=== PATIENT | male | born 1965 | race Caucasian/White ===

== ENCOUNTER 2018-06-08 02:20 | Emergency (ER) | payer OTHER ==
[2018-06-08] MEDS ORDERED: KETOROLAC TROMETHAMINE INJ/PF 30 MG/1 ML SDV IM ONE (03:55)
[2018-06-08] MEDS ORDERED: HYDROMORPHONE HCL INJ/PF 2 MG/ML AMPULE IM ONE (04:53)
[2018-06-08] MEDS ORDERED: DIAZEPAM INJ 10 MG/2 ML DISP.SYRIN IM ONE ×2 (05:40→06:28)
--- NOTE | 2018-06-08 05:50 | ER Document Report ---
ED General - General Chief Complaint: Back Pain Stated Complaint: BACK PAIN Time Seen by Provider: 06/08/18 03:43 Notes: Patient is a pleasant 53-year-old male with a history of chronic back pain who presents with sudden onset severe pain in the left lower back that sometimes spasms and radiates across the lower back and he sometimes has pain that shoots down the back of his left leg and around the left hip. He has a history of degenerative disc disease. He says he is not on any chronic pain medicine. He says he will occasionally take Tylenol for pain. Denies any new injuries. No new trauma. No fevers. No weakness into the leg. No loss of bowel control. No urinary tension. TRAVEL OUTSIDE OF THE [place] IN LAST 30 DAYS: No - Related Data Allergies/Adverse Reactions: No Known Allergies Allergy (Unverified 11/16/11 21:24) Past Medical History - Social History Smoking Status: Never Smoker Chew tobacco use (# tins/day): No Frequency of alcohol use: None Drug Abuse: None Family History: Reviewed & Not Pertinent Patient has suicidal ideation: No Patient has homicidal ideation: No - Past Medical History Cardiac Medical History: Reports: Hx Hypercholesterolemia Denies: Hx Atrial Fibrillation, Hx Congestive Heart Failure, Hx Coronary Artery Disease, Hx Heart Attack, Hx Hypertension, Hx Peripheral Vascular Disease, Hx Pulmonary Embolism, Hx Heart Murmur Pulmonary Medical History: Reports: Hx Pneumonia Denies: Hx Asthma, Hx Bronchitis, Hx COPD, Hx Respiratory Failure, Hx Sleep Apnea, Hx Tuberculosis Neurological Medical History: Denies: Hx Cerebrovascular Accident, Hx Seizures Endocrine Medical History: Denies: Hx Graves' Disease, Hx Hyperthyroidism, Hx Hypothyroidism Renal/ Medical History: Denies: Hx Benign Prostatic Hyperplasia, Hx End Stage Renal Disease, Hx Kidney Stones, Hx Peritoneal Dialysis Malignancy Medical History: Denies Hx Leukemia, Denies Hx Lung Cancer GI Medical History: Denies: Hx Crohn's Disease, Hx Gastroesophageal Reflux Disease, Hx Hiatal Hernia, Hx Irritable Bowel, Hx Liver Failure, Hx Pancreatitis, Hx Ulcer Musculoskeletal Medical History: Reports Hx Arthritis, Denies Hx Fibromyalgia, Denies Hx Multiple Sclerosis, Denies Hx Muscular Dystrophy Psychiatric Medical History: Reports: Hx Post Traumatic Stress Disorder Denies: Hx Bipolar Disorder, Hx Dementia, Hx Depression, Hx Schizophrenia Traumatic Medical History: Reports: Hx Fractures - HX LEFT BROKEN ELBOX Infectious Medical History: Denies: Hx HIV Past Surgical History: Denies: Hx Colostomy, Hx Pacemaker - Immunizations Hx Diphtheria, Pertussis, Tetanus Vaccination: Yes Review of Systems - Review of Systems Notes: My Normal Review Basic REVIEW OF SYSTEMS: CONSTITUTIONAL : Denies fever, chills, or sweats. Denies recent illness. RESPIRATORY: Denies cough, cold, or chest congestion. Denies shortness of breath, difficulty breathing, or wheezing. GASTROINTESTINAL: Denies abdominal pain. Denies nausea, vomiting, or diarrhea. Denies constipation. Last BM: GENITOURINARY: No urinary tension MUSCULOSKELETAL: Lower back pain SKIN: Denies rash or skin lesions. NEUROLOGICAL: Denies sensory or motor loss. ALL OTHER SYSTEMS REVIEWED AND NEGATIVE. Physical Exam - Vital signs Vitals: Temp Pulse Resp BP Pulse Ox 97.2 F 99 17 140/80 H 96 06/08/18 02:27 06/08/18 02:27 06/08/18 02:27 06/08/18 02:27 06/08/18 02:27 - Notes Notes: General Appearance: Well nourished, alert, cooperative, no acute distress, moderate obvious discomfort. Vitals: reviewed, See vital signs table. Eyes: PERRL, EOMI, Conjuctiva clear Mouth: No decreasd moisture Extremities: strength 5/5 in all extremities, good pulses in all extremities, no swelling or tenderness in the extremities, no edema. Back: Reproducible pain to palpation that is mainly just left to the lumbar sacral junction. This causes pain that radiates into the hip and down the back of the leg. No pain to palpation to the right side of the back. When I push on the left side he will sometimes have pain that shoots across to the right side. No bruising or redness or swelling to the back. Skin: warm, dry, appropriate color, no rash Neuro: speech clear, oriented x 3, normal affect, responds appropriately to questions. Good strength with plantar and dorsiflexion against resistance. Distal sensation intact. Normal patellar reflexes. Course - Re-evaluation Re-evalutation: 06/08/18 06:33 Patient's pain and spasm finally improved with the Valium. Spinning flexion hours since he received a dose of Valium but he still having some intermittent spasm but says it is now tolerable. He is a wide awake and alert and still having some pain. I will therefore give him a dose of Valium before he leaves. I encouraged him to return to ER immediately if he has loss of bowel control, urinary tension, leg weakness or numbness, or if he feels that he is worse in any way. Patient has no symptoms concerning for central cord impingement. I encouraged follow-up with his doctor Sunday for reevaluation and for possible referral to physical therapy. Patient agrees with plan will be discharged home. Dictation of this chart was performed using voice recognition software; therefore, there may be some unintended grammatical errors. 06/08/18 06:34 - Vital Signs Vital signs: Temp Pulse Resp BP Pulse Ox 97.8 F 97 16 166/94 H 97 06/08/18 05:49 06/08/18 05:49 06/08/18 05:49 06/08/18 05:49 06/08/18 05:49 Discharge - Discharge Clinical Impression: Low back pain Qualifiers: Chronicity: acute Back pain laterality: left Sciatica presence: with sciatica Sciatica laterality: sciatica of left side Qualified Code(s): M54.42 - Lumbago with sciatica, left side Condition: Good Disposition: HOME, SELF-CARE Additional Instructions: LOW BACK PAIN: Three out of every four people will have an episode of disabling back pain during their lifetime. Most commonly the pain is due to straining of the muscles and ligaments in the low back. Usual treatment includes: (1) Rest on a firm surface. Avoid lying on your stomach. (2) Ice pack the painful area. After a few days, gentle heat may be used intermittently to relax the area, or ice packs can be continued. (3) Medication may be needed -- muscle relaxers and antiinflammatory medicines are commonly used. (4) As the back improves, exercises are prescribed to strengthen the back and abdominal muscles. Your doctor will advise you on the proper care for your back at each stage in your recovery. You may be better in a few days -- or healing may take several weeks. If new symptoms of a "herniated disc" (radiation of pain, numbness, or tingling down the back of the leg or weakness in the leg) occur, you should be re-examined. Further testing may be necessary. PAIN MEDICATION INJECTION: You have received an injection of a pain medication. You should experience significant pain relief within 45 minutes. If this injection was a narcotic -- it will impair your judgement, slow your reaction time and make you sleepy (as well as relieve your pain). Narcotics also can cause nausea. You should not drive, work with machinery, or perform any task requiring mental alertness until all effects of the medication are gone -- six to eight hours. Do not take any alcohol, or sedatives, and do not take any other medication without checking with your physician. MUSCLE RELAXERS: Muscle relaxing medications are usually prescribed for acute muscle spasm or injury to the neck and back. They are often combined with antiinflammatory pain medication for increased relief. You may stop the muscle relaxer when the pain and stiffness have improved. Start the medication again if spasms recur. Muscle relaxers may cause drowsiness, especially with the first dose. Do not operate machinery or drive while under the effects of the medication. Most muscle relaxers last up to 24 hours. Do not combine the medication with alcohol. WARM PACKS: After approximately two days, apply gentle heat (such as a heating pad or hot water bottle) for about 20 to 30 minutes about every two hours -- at least four times daily. Warmth and elevation will help you make a more rapid recovery, and will ease the pain considerably. Do not use HOT heat, and never apply heat for longer than 30 minutes. The continuous heat can invisibly damage skin and muscles -- even when no burn is seen on the surface. Damaged muscles can make you MORE sore. FOLLOW-UP CARE: If you have been referred to a physician for follow-up care, call the physicians office for an appointment as you were instructed or within the next two days. If you experience worsening or a significant change in your symptoms, notify the physician immediately or return to the Emergency Department at any time for re-evaluation. Please make an appointment to see your doctor on Sunday. Please see him for reevaluation and possible referral to physical therapy. Please rest over the next 24 hours. After 24 hours please get up and start trying to move around but do not over exert yourself. Please do not do any heavy lifting. Please return to the ER immediately if you have worsening pain, weakness or numbness into your leg, loss of control of your bowel function, or inability to urinate. I have prescribed you medication called Valium. This helps relaxes the muscles in your back; however, it can make you sleepy so do not take more than prescribed or can affect your level of consciousness and affect your breathing. Do not drive after taking this medication. Please also take ibuprofen 400 mg every 6 hours and Tylenol 500 mg every 4 hours for pain and inflammation in your back. Prescriptions: Diazepam [Valium 5 mg Tablet] 5 mg PO QIDP PRN #15 tablet PRN Reason: Muscle Spasms Forms: Special Work Note
[2018-06-08 07:01] VITALS: BP 146/93
== END 2018-06-08 06:59 | disposition home or self-care (01) ==
LOC: ER 02:20
DX: M54.42 Lumbago with sciatica, left side (principal); E78.00 Pure hypercholesterolemia, unspecified
CPT/HCPCS: 99283; 96372; J3360; J1885; J1170